=== PATIENT | male | born 1980 | race Caucasian/White ===

== ENCOUNTER → 2017-10-22 | Outpatient (CLI) | payer OTHER ==
[~2017-10-22] MED LIST: CLEOCIN HCL300 MG PO; FLEXERIL 1010 MG/TAB PO; PAIN MED; PERCOCET 325 MG1 TA2 PO; ULTRAM 50MG TAB50 MG PO
== END ==
LOC: COL.RAD 14:45
DX: M51.36 Other intervertebral disc degeneration, lumbar region (principal); M48.061 Spinal stenosis, lumbar region without neurogenic claudication; K21.9 Gastro-esophageal reflux disease without esophagitis; E66.01 Morbid (severe) obesity due to excess calories